=== PATIENT | female | born 1980 | race Caucasian/White ===

== ENCOUNTER → 2016-10-31 | Outpatient (CLI) | payer OTHER | LOC: FIMAGING 08:36 | PROVIDERS: ATTEND Obstetrics & Gynecology | DX: O09.512 Supervision of elderly primigravida, second trimester (principal); O99.282 Endocrine, nutritional and metabolic diseases complicating pregnancy, second trimester; E03.9 Hypothyroidism, unspecified; Z85.850 Personal history of malignant neoplasm of thyroid; Z3A.19 19 weeks gestation of pregnancy; Z79.899 Other long term (current) drug therapy ==

== ENCOUNTER 2017-03-04 10:17 | Observation (INO) | payer OTHER ==
[2017-03-04] MEDS ORDERED: ONDANSETRON 4 MG/2 ML VIAL IVP ONE (11:30)
[2017-03-04] MEDS ORDERED: LR 1,000 ML IV SCH (11:30)
[2017-03-04 12:13] LABS: ALANINE AMINOTRANSFERASE 30 IU/L (9-52); ASPARTATE AMINOTRANSFERASE 32 IU/L (14-46); BILIRUBIN,TOTAL 0.6 mg/dL (0.1-1.4); BILIRUBIN-CONJUGATED 0.1 mg/dL (0.0-0.5); BILIRUBIN-UNCONJUGATED 0.5 mg/dL (0.0-1.1); CREATININE 0.6 mg/dL (0.6-1.0); GLOMERULAR FILTRATION RATE > 60; LACTATE DEHYDROGENASE 581 IU/L (313-618); URIC ACID 3.3 mg/dL (2.5-6.8)
[2017-03-04 12:33] LABS: % IMMATURE GRANULYOCYTES 1.1 % (0.0-1.1); ADD DIFF? NO; ADD MORPH? NO; ADD SCAN? NO; ATYPICAL LYMPHOCYTE FLAG 0 (0-99); FRAGMENT RBC FLAG 0 (0-99); HEMATOCRIT 36.6 % (38.0-47.0); HEMOGLOBIN 12.6 g/dL (12.6-16.3); LEFT SHIFT FLG 10 (0-99); LIPEMIA HEMOLYSIS FLAG 90 (0-99); MEAN CELL HEMOGLOBIN 31.2 pg (27.9-34.1); MEAN CELL HEMOGLOBIN CONCENTR. 34.4 g/dL (32.4-36.7); MEAN CELL VOLUME 90.6 fL (81.5-99.8); MEAN PLATELET VOLUME 11.1 fL (8.7-11.7); PLATELET CLUMPS FLAG 0 (0-99); PLATELET COUNT 132 10^3/uL (150-400); RED BLOOD CELL COUNT 4.04 10^6/uL (4.18-5.33); RED CELL DISTRIBUTION WIDTH 13.4 % (11.5-15.2)
== END 2017-03-04 13:10 | disposition home or self-care (01) ==
LOC: FLD 10:17
PROVIDERS: ADMIT Obstetrics & Gynecology; ATTEND Obstetrics & Gynecology
DX: O99.89 Other specified diseases and conditions complicating pregnancy, childbirth and the puerperium (principal); R51 Headache; R11.0 Nausea; Z3A.37 37 weeks gestation of pregnancy
CPT/HCPCS: G0378 ×2; J2405

== ENCOUNTER 2017-03-12 18:51 | Inpatient (IN) | payer OTHER ==
[2017-03-12] MEDS ORDERED: LR 1,000 ML IV PRN (19:40)
[2017-03-12] MEDS ORDERED: EPSOM SALT 454 GM TP PRN (19:40)
[2017-03-12] MEDS ORDERED: OLIVE OIL 118 ML BTL MISC PRN (19:40)
[2017-03-12] MEDS ORDERED: TERBUTALINE SULFATE 1 MG/ML VIAL IV PRN (19:40)
[2017-03-12] MEDS ORDERED: OXYTOCIN/RINGERS LACTATE 1,000 ML IV PRN (19:40)
[2017-03-12] MEDS ORDERED: LIDOCAINE 1% 300 MG/30 ML SDV ONE (20:16)
[2017-03-12] MEDS ORDERED: TERBUTALINE SULFATE 1 MG/ML VIAL ONE (20:17)
[2017-03-12] MEDS ORDERED: OXYTOCIN 10 UNIT/ML VIAL ONE (20:17)
[2017-03-12] MEDS ORDERED: OLIVE OIL 118 ML BTL ONE (20:17)
[2017-03-12] MEDS ORDERED: MISOPROSTOL 200 MCG TAB ONE (20:17)
[2017-03-12] MEDS ORDERED: AMMONIA AROMATIC 1 EACH AMP IH ONE (20:17)
[2017-03-12] MEDS ORDERED: fentaNYL 100 MCG/2 ML INJ ONE (20:19)
[2017-03-12] MEDS ORDERED: ONDANSETRON 4 MG/2 ML VIAL ONE (20:19)
[2017-03-12] MEDS ORDERED: ONDANSETRON 4 MG/2 ML VIAL IVP PRN (20:20)
[2017-03-12 20:28] LABS: % IMMATURE GRANULYOCYTES 1.1 % (0.0-1.1); ABSOLUTE IMMATURE GRANULOCYTES 0.13 10^3/uL (0.00-0.10); ADD DIFF? NO; ADD MORPH? NO; ADD SCAN? NO; ATYPICAL LYMPHOCYTE FLAG 0 (0-99); FRAGMENT RBC FLAG 0 (0-99); HEMATOCRIT 39.4 % (38.0-47.0); HEMOGLOBIN 13.8 g/dL (12.6-16.3); LEFT SHIFT FLG 10 (0-99); LIPEMIA HEMOLYSIS FLAG 90 (0-99); MEAN CELL HEMOGLOBIN 31.4 pg (27.9-34.1); MEAN CELL VOLUME 89.5 fL (81.5-99.8); PLATELET CLUMPS FLAG 30 (0-99); PLATELET COUNT 171 10^3/uL (150-400); RED CELL DISTRIBUTION WIDTH 13.6 % (11.5-15.2)
[2017-03-12] MEDS ORDERED: fentaNYL 100 MCG/2 ML INJ IVP ONE (20:30)
[2017-03-12 20:43] LABS: ALANINE AMINOTRANSFERASE 32 IU/L (9-52); ASPARTATE AMINOTRANSFERASE 31 IU/L (14-46); BILIRUBIN,TOTAL 0.5 mg/dL (0.1-1.4); BILIRUBIN-UNCONJUGATED 0.5 mg/dL (0.0-1.1); CREATININE 0.6 mg/dL (0.6-1.0); GLOMERULAR FILTRATION RATE > 60; LACTATE DEHYDROGENASE 530 IU/L (313-618); URIC ACID 2.9 mg/dL (2.5-6.8)
[2017-03-12] MEDS ORDERED: HYDROCORTISONE 0.5% CREAM TP PRN (21:42)
[2017-03-12] MEDS ORDERED: ACETAMINOPHEN 325 MG TAB PO PRN (21:42)
[2017-03-12] MEDS ORDERED: SIMETHICONE 80 MG TAB CHEW PO PRN (21:42)
--- NOTE | 2017-03-12 21:46 | OBDEL ---
Info Type: Vaginal GBS+: No Indications for Delivery: Spontaneous Labor Vaginal Delivery - Labor and Delivery Onset of Contractions Date: 03/12/17 Onset of Contractions Time: 14:30 Onset of Contractions Type: Spontaneous Rupture of Membranes Date: 03/12/17 Rupture of Membranes Time: 07:00 Rupture of Membranes Type: Spontaneous Amniotic Fluid Color: Clear Dilation Complete Date: 03/12/17 Dilation Complete Time: 20:55 Placenta Delivery Date: 03/12/17 Laceration: 2nd Degree Repair: 3-0, Vicryl Vaginal Sponge Count Correct: Yes Vaginal Needle Count Correct: Yes Vaginal Sweep Performed: No EBL: 300 ml Delivery Comment: precipitous delivery, I was paged at 8:56 for delivery, patient delivered at 8: 58 placenta appeared bilobed, US done after delivery to confirm no retained POCS, thin endometrial stripe was seen - Medications Labor Augmentation/Induction Methods Used: None Data Long Delivery Date: 03/12/17 Delivery Time: 20:58 QUINN: 03/22/17 Gestational Age: 38 week(s) and 4 day(s) Sex of Infant: Male Score (1 Min): 8 Score (5 Min): 9 ICD10 Worksheet Patient Problems: Problems Problem Status Onset Labor established Acute
--- NOTE | 2017-03-12 21:47 | OBGCSDC ---
General Delivery Information - General Info : 2 Para: 1 Abortions: 0 Delivery Physician/CNM: Lilliam Orozco Admission Date: 03/12/17 Labs: Patient ABO/Rh O POSITIVE 03/12/17 20:05 Hct 39.4 % (38.0-47.0) 03/12/17 20:05 Vaginal - Diagnosis Labor: Spontaneous Rupture of Membranes Type: Spontaneous Amniotic Fluid Color: Clear Laceration: 2nd Degree Repair: 3-0, Vicryl - Hospital Course Antepartum: hypothyroidism due to thyroidectomy Intrapartum: none : none - Delivery Type: Vaginal EBL: 300 ml [place] Data Long Delivery Date: 03/12/17 Delivery Time: 20:58 QUINN: 03/22/17 Gestational Age: 38 week(s) and 4 day(s) Sex of Infant: Male Score (1 Min): 8 Score (5 Min): 9
--- NOTE | 2017-03-12 22:02 | GHP ---
[f rep st] PREOP HISTORY AND PHYSICAL DATE OF ADMISSION: 03/12/2017 CHIEF COMPLAINT: Labor. HISTORY OF PRESENT ILLNESS: The patient is a 36-year-old, G2, P1-0-0-1 female, who is at 38-4/7 wee ks gestation, who presents with complaints of contractions and rupture of membranes. She had been c ontracting intermittently upon time of arrival, and she was 3-4 cm dilated, 80% effaced, and -2 stat ion. PAST MEDICAL HISTORY: Significant for thyroidectomy and subsequent hypothyroidism. PAST SURGICAL HISTORY: Thyroidectomy, history of thyroid cancer. DIVEMASTER HISTORY: Negative. She had 1 previous , 6 pounds 13 ounces. ALLERGIES: She has no known drug allergies. MEDICATIONS: She is currently taking calcium, vitamin, DHA, and [place] Thyroid 120 mg zeyad y. REVIEW OF SYSTEMS: Positive for vaginal bleeding, loss of fluid, and painful contractions. PHYSICAL EXAMINATION: VITAL SIGNS: Stable. ABDOMEN: Gravid and nontender. : Her cervix exam is 3-4 cm, 80% effaced, and -2 station. LABORATORY DATA: Significant for O positive. Antibody screen negative. Rubella immune. RPR nonre active. Hepatitis B surface antigen negative. HIV negative. Gonorrhea and chlamydia negative. GB S negative on 02/20/2017. heart tones in the 130s with moderate variability. ASSESSMENT/PLAN: This 36-year-old, G2, P1, female, who is in early labor desires epidural. GBS is negative and well-being is reassuring. /[id number]/MODL
[2017-03-12] MEDS: IBUPROFEN 600 MG TAB PO PRN (22:26)
[2017-03-13] MEDS: IBUPROFEN 600 MG TAB PO PRN ×4 (04:47→22:35)
--- NOTE | 2017-03-13 07:57 | OBPP ---
Progress Note Assessment/Plan: Assessment: 36 y.o. s/p PPD#1. Recovering well with good pain management. . Plan: Routine care. consult. 03/13/17 07:52 Subjective: Reports good pain control with minimal vaginal bleeding. well. Eating and drinking well without nausea and vomiting. Ambulating well without nausea or vomiting. Voiding and stooling without difficulty. Appropriate mood with good support system. Objective: 03/12/17 20:05 03/12/17 20:05 Patient ABO/Rh O POSITIVE 03/12/17 20:05 Uric Acid 2.9 mg/dL (2.5-6.8) 03/12/17 20:05 Total Bilirubin 0.5 mg/dL (0.1-1.4) 03/12/17 20:05 Conjugated Bilirubin 0.0 mg/dL (0.0-0.5) 03/12/17 20:05 Unconjugated Bilirubin 0.5 mg/dL (0.0-1.1) 03/12/17 20:05 AST 31 IU/L (14-46) 03/12/17 20:05 ALT 32 IU/L (9-52) 03/12/17 20:05 Lactate Dehydrogenase 530 IU/L (313-618) 03/12/17 20:05 Temp Pulse Resp BP Pulse Ox 36.3 C 75 18 118/72 03/13/17 00:05 03/13/17 00:05 03/13/17 00:05 03/13/17 00:05 Uterine Position/Fundal Height: Umbilicus -1 Uterine Tone: Firm Physical Exam - Physical Exam General Appearance: WD/WN, alert, no apparent distress EENT: normal ENT inspection Neck: non-tender, full range of motion, normal inspection Respiratory: lungs clear, normal breath sounds Cardiac/Chest: regular rate, rhythm, edema Abdomen: non-tender, soft Extremities: normal range of motion, non-tender, normal inspection Back: Normal inspection Skin: normal color, warm/dry Neuro/Psych: alert, normal mood/affect, oriented x 3
[2017-03-13] MEDS ORDERED: THYROID 60 MG TAB PO SCH (10:00)
[2017-03-13] MEDS: DOCUSATE SODIUM 100 MG CAP PO PRN ×2 (10:46→22:35)
[2017-03-13 20:34] VITALS: PULSE 80; O2SAT 97
[2017-03-13] MEDS ORDERED: SUCROSE 1 EA UDL ONE (21:46)
[2017-03-14] MEDS: IBUPROFEN 600 MG TAB PO PRN ×2 (04:43→12:02)
--- NOTE | 2017-03-14 08:13 | OBGCSDC ---
General Delivery Information - General Info : 2 Para: 2 Delivery Physician/CNM: Lilliam Orozco Admission Date: 03/14/17 Labs: Patient ABO/Rh O POSITIVE 03/12/17 20:05 Hct 39.4 % (38.0-47.0) 03/12/17 20:05 Vaginal - Diagnosis Labor: Spontaneous Presentation at Delivery: Vertex Rupture of Membranes Type: Spontaneous Amniotic Fluid Color: Clear Laceration: 2nd Degree Repair: 3-0, Vicryl Delivery Events: None - Operations/Procedures L&D Analgesia/Anesthesia Type: Local - Delivery L&D Analgesia/Anesthesia Type: Local Data Long Delivery Date: 03/12/17 Delivery Time: 20:58 QUINN: 03/22/17 Gestational Age: 38 week(s) and 6 day(s) Sex of : Male [place] Weight (gm): 3022 g Score (1 Min): 8 Score (5 Min): 9 Discharge Information - Discharge Information Discharge Medications: Ibuprofen, Vitamins Condition: Good Instruction/Follow Up: Four Weeks, Six Weeks Discharge Physician/CNM: Lora Klein
[2017-03-14] MEDS: DOCUSATE SODIUM 100 MG CAP PO PRN (08:50)
[2017-03-14 15:27] VITALS: BP 111/74; RESP 16; TEMP 97.7
== END 2017-03-14 13:45 | disposition home or self-care (01) | DRG 775 ==
LOC: FLD 18:51 → OBSVTOIN 19:41 → FOB 03-13 00:02
PROVIDERS: ADMIT Obstetrics & Gynecology; ATTEND Obstetrics & Gynecology
PROC: 10E0XZZ Delivery of Products of Conception, External Approach (ICD-10-PCS; principal; 2017-03-12)
PROC: 0KQM0ZZ Repair Perineum Muscle, Open Approach (ICD-10-PCS; principal; 2017-03-12)
DX: O70.1 Second degree perineal laceration during delivery (principal); O62.3 Precipitate labor; O99.284 Endocrine, nutritional and metabolic diseases complicating childbirth; E03.9 Hypothyroidism, unspecified; Z85.850 Personal history of malignant neoplasm of thyroid; Z3A.38 38 weeks gestation of pregnancy; Z37.0 Single live birth
CPT/HCPCS: J2405; J2590; J3010; J3105